=== PATIENT | female | born 1985 | race Two or more races ===

== ENCOUNTER 2023-03-29 16:26 | Emergency (ER) | payer MEDICAID, OTHER ==
[~2023-03-29] VITALS: Ht 165.1 cm; Wt 77.0 kg
[2023-03-29 16:55] VITALS: BP 136/80; PULSE 75; RESP 16; TEMP 97.5; O2SAT 99
[2023-03-29] MEDS ORDERED: TRIA0.02 TOP (16:57)
[2023-03-29] MEDS ORDERED: CEPH500C PO (16:57)
== END 2023-03-29 17:10 | disposition home or self-care (01) ==
LOC: ER 16:26
DX: S70.361A Insect bite (nonvenomous), right thigh, initial encounter (principal); W57.XXXA Bitten or stung by nonvenomous insect and other nonvenomous arthropods, initial encounter; Y93.89 Activity, other specified; Y92.89 Other specified places as the place of occurrence of the external cause; Y99.8 Other external cause status